=== PATIENT | male | born 1955 | race African-American/Black ===

== ENCOUNTER → 2017-02-27 | Outpatient (CLI) | payer MEDICARE ==
[2016-03-29 12:54] VITALS: BP 112/64
[~2017-02-27] MED LIST: ALLO300T PO; AMLO10TA2 PO; ATOR40TA59 PO; Aspirin PO; CLOP75TA27 PO; CRESTOR20 MG PO; DILT30TA PO; DOCU50CA9 PO; FURO20TA3 PO; INSU100V SQ; INSU100V8 SQ; LISI1TAB7 PO; LOSA100T6 PO; Lisinopril PO; Metoprolol Tartrate PO; OXYB5TAB33 PO; Oxycodone Hcl/Acetaminophen PO; SITA1TBM7 PO
--- NOTE | 2017-02-27 13:54 | CARD ---
APPROVED REPORT EXAM: Two-dimensional and M-mode echocardiogram with Doppler and color Doppler. Other Information Quality : Average Rhythm : NSR INDICATION Cardiomyopathy 2D DIMENSIONS RVDd3.2 (2.9-3.5cm)Left Atrium(2D)3.7 (1.6-4.0cm) IVSd1.4 (0.7-1.1cm)Aortic Root(2D)2.6 (2.0-3.7cm) LVDd4.4 (3.9-5.9cm)LVOT Diameter2.0 (1.8-2.4cm) PWd1.4 (0.7-1.1cm)LVDs2.8 (2.5-4.0cm) FS (%) 26.1 %SV59.1 ml LVEF(%)55.9 (>50%) Aortic Valve AoV Peak Tc.156.0cm/sAoV VTI29.0cm AO Peak GR.9.7mmHgLVOT Peak Tc.104.6cm/s LVOT VTI 20.81cmAO Mean GR.5mmHg ESTHER (VMAX)2.68zm8FHD (VTI)2.34cm2 AI P 1/2 Zecd929ut Mitral Valve MV E Beurgsdn19.6cm/sMV DECEL FLZG346nx MV A Tivkuxsz98.0cm/sMV E Mean Gr.2mmHg MV GZG10xvT/A Ratio1.1 MV A Bdfavmzs870wtKQW (PHT)3.16cm2 TDI E/Lateral E'11.2E/Medial E'11.4 Pulmonary Valve PV Peak Khljxkdg130.6cm/sPV Peak Grad.6mmHg RVOT VTI22.6cm Tricuspid Valve TR P. Diajnnkq258qn/sRAP MGYQWYQK9nkZq TR Peak Gr.04tdHkVYVB76kkWe LEFT VENTRICLE The left ventricle is normal size. There is borderline to mild concentric left ventricular hypertroph y. Left ventricle systolic function is normal. The Ejection Fraction is 50-55%. There is normal LV se gmental wall motion. Tissue Doppler imaging reveals mild left ventricular diastolic dysfunction. Carpenter smitral Doppler flow pattern is Grade I-abnormal relaxation pattern. There is no ventricular septal d efect visualized. RIGHT VENTRICLE The right ventricle is normal size. The right ventricular systolic function is normal. There is a pac emaker/ICD lead seen in the RV/RA. ATRIA The left atrium size is normal. The right atrium size is normal. The interatrial septum is intact wit h no evidence for an atrial septal defect or patent foramen ovale as noted on 2-D or Doppler imaging. AORTIC VALVE The aortic valve is normal in structure and function. The aortic valve is trileaflet. Doppler and Col or Flow revealed trace aortic regurgitation. There is no significant aortic valvular stenosis. MITRAL VALVE The mitral valve is normal in structure and function. There is no mitral valve stenosis. Doppler and Color Flow revealed trace mitral valve regurgitation. TRICUSPID VALVE The tricuspid valve is not well visualized. Doppler and Color Flow revealed mild tricuspid regurgitat ion. The PA pressure was estimated at 38 mmHg. There is no tricuspid valve stenosis. PULMONIC VALVE The pulmonic valve is not well visualized. Doppler and Color Flow revealed mild pulmonic valvular reg urgitation. There is no pulmonic valvular stenosis. GREAT VESSELS The aortic root is normal in size. Normal pulmonary venous flow (Doppler). The IVC is normal in size and collapses >50% with inspiration. PERICARDIAL EFFUSION There is no evidence of significant pericardial effusion. Critical Notification Critical Value: No <Conclusion> The left ventricle is normal size. Left ventricle systolic function is normal. The Ejection Fraction is 50-55%. There is borderline to mild concentric left ventricular hypertrophy. There is a pacemaker/ICD lead seen in the RV/RA. There is no significant aortic valvular stenosis. Doppler and Color Flow revealed trace aortic regurgitation. Doppler and Color Flow revealed trace mitral valve regurgitation. Doppler and Color Flow revealed mild tricuspid regurgitation. The PA pressure was estimated at 38 mmHg.
== END | disposition home or self-care (01) ==
LOC: ECHO 13:05
PROVIDERS: ATTEND Internal Medicine Cardiovascular Disease
DX: I08.3 Combined rheumatic disorders of mitral, aortic and tricuspid valves (principal)
CPT/HCPCS: 93306

== ENCOUNTER 2017-07-13 14:49 | Emergency (ER) | payer MEDICARE ==
[~2017-07-13] VITALS: Ht 172.7 cm; Wt 86.2 kg
[~2017-07-13 14:49] MED LIST changes: -CLOP75TA27 PO; +CLOP75TA57 PO
--- NOTE | 2017-07-13 15:05 | PHYS DOC ---
Past Medical History Past Medical History: Diabetes-Type I, High Cholesterol, Hypertension, Kidney Stone, Prostatitis Past Surgical History: TURP, Other Additional Past Surgical Histo: COLON CANCER Alcohol Use: Occasionally Drug Use: None Adult General Chief Complaint Chief Complaint: SHORTNESS OF BREATH [facility] HPI Patient is a 61 year old -Swazi Swazi male who presents with chart is breath with exertion. According patient he slept fine had no orthopnea and then this morning when he was walking from his car back to his house he felt short of breath. His past medical history of COPD but does not have any of his inhalers, hypertension, diabetes type 2, colon cancer status post resection , GERD, gout, osteoarthritis, congestive heart failure with an [employer] ICD implanted in January 2016. He states this does not feel like his congestive heart failure symptoms his he's had that in the past. He states he is compliant with all his medications not been out of it. He denies any chest pain. He states his monitor his been going off every night for the last week. Review of Systems Review of Systems Constitutional: Denies fever or chills [] Eyes: Denies change in visual acuity, redness, or eye pain [] HENT: Denies nasal congestion or sore throat [] Respiratory: Denies cough or positive for shortness of breath with exertion Cardiovascular: No additional information not addressed in HPI [] GI: Denies abdominal pain, nausea, vomiting, bloody stools or diarrhea [] : Denies dysuria or hematuria [] Musculoskeletal: Denies back pain or joint pain [] Integument: Denies rash or skin lesions [] Neurologic: Denies headache, focal weakness or sensory changes [] Endocrine: Denies polyuria or polydipsia [] Current Medications Current Medications Current Medications Medications (Trade) Dose Ordered Sig/Yefri Start Time Stop Time Status Last Admin Dose Admin Albuterol/ Ipratropium (Duoneb) 3 ml 1X ONCE 07/13/17 16:00 07/13/17 16:01 DC 07/13/17 16:41 3 ML Allergies Allergies Allergies Coded Allergies Type Severity Reaction Last Updated Verified No Known Drug Allergies 03/29/16 No Physical Exam Physical Exam Constitutional: Well developed, well nourished, no acute distress, non-toxic appearance. [] HENT: Normocephalic, atraumatic, bilateral external ears normal, oropharynx moist, no oral exudates, nose normal. [] Eyes: PERRLA, EOMI, conjunctiva normal, no discharge. [] Neck: Normal range of motion, no tenderness, supple, no stridor. [] Cardiovascular:Heart rate regular rhythm, no murmur [] Lungs & Thorax: Bilateral breath sounds clear to auscultation [] Abdomen: Bowel sounds normal, soft, no tenderness, no masses, no pulsatile masses. [] Skin: Warm, dry, no erythema, no rash. [] Back: No tenderness, no CVA tenderness. [] Extremities: No tenderness, no cyanosis, no clubbing, ROM intact, no edema. [] Neurologic: Alert and oriented X 3, normal motor function, normal sensory function, no focal deficits noted. [] Psychologic: Affect normal, judgement normal, mood normal. [] Current Patient Data Vital Signs Vital Signs Date Time Temp Pulse Resp B/P (MAP) Pulse Ox O2 Delivery O2 Flow Rate FiO2 07/13/17 16:41 97 Room Air 07/13/17 16:00 75 20 140/71 (94) 07/13/17 15:07 98.2 98.2 Lab Values Laboratory Tests Test 07/13/17 15:24 07/13/17 15:30 White Blood Count 9.9 x10^3/uL (4.0-11.0) Red Blood Count 4.30 x10^6/uL (4.30-5.70) Hemoglobin 13.0 g/dL (13.0-17.5) Hematocrit 38.9 % (39.0-53.0) L Mean Corpuscular Volume 91 fL (79-100) Mean Corpuscular Hemoglobin 30 pg (25-35) Mean Corpuscular Hemoglobin Concent 33 g/dL (31-37) Red Cell Distribution Width 15.8 % (11.5-14.5) H Platelet Count 355 x10^3/uL (140-400) Neutrophils (%) (Auto) 65 % (31-73) Lymphocytes (%) (Auto) 19 % (24-48) L Monocytes (%) (Auto) 12 % (0-9) H Eosinophils (%) (Auto) 3 % (0-3) Basophils (%) (Auto) 1 % (0-3) Neutrophils # (Auto) 6.4 x10^3uL (1.8-7.7) Lymphocytes # (Auto) 1.9 x10^3/uL (1.0-4.8) Monocytes # (Auto) 1.2 x10^3/uL (0.0-1.1) H Eosinophils # (Auto) 0.3 x10^3/uL (0.0-0.7) Basophils # (Auto) 0.1 x10^3/uL (0.0-0.2) Sodium Level 136 mmol/L (136-145) Potassium Level 5.1 mmol/L (3.5-5.1) Chloride Level 99 mmol/L (98-107) Carbon Dioxide Level 24 mmol/L (21-32) Anion Gap 13 (6-14) Blood Urea Nitrogen 34 mg/dL (8-26) H Creatinine 2.4 mg/dL (0.7-1.3) H Estimated GFR (Cockcroft-Gault) 33.6 Glucose Level 129 mg/dL (70-99) H Calcium Level 9.6 mg/dL (8.5-10.1) Magnesium Level 2.1 mg/dL (1.8-2.4) Total Bilirubin 0.2 mg/dL (0.2-1.0) Direct Bilirubin < 0.1 mg/dL (0.0-0.2) Aspartate Amino Transferase (AST) 22 U/L (15-37) Alanine Aminotransferase (ALT) 24 U/L (16-63) Alkaline Phosphatase 133 U/L (46-116) H Creatine Kinase 172 U/L (39-308) Creatine Kinase MB (Mass) 0.6 ng/mL (0.0-3.6) Creatine Kinase MB Relative Index 0.3 % (0-4) Troponin I Quantitative < 0.017 ng/mL (0.000-0.055) HM-Upw-B-Type Natriuretic Peptide 42 pg/mL (0-124) Total Protein 8.4 g/dL (6.4-8.2) H Albumin 4.1 g/dL (3.4-5.0) Urine Collection Type Unknown Urine Color Yellow Urine Clarity Clear Urine pH 6.5 Urine Specific [place] 1.010 Urine Protein Negative mg/dL (NEG-TRACE) Urine Glucose (UA) Negative mg/dL (NEG) Urine Ketones (Stick) Negative mg/dL (NEG) Urine Blood Negative (NEG) Urine Nitrite Negative (NEG) Urine Bilirubin Negative (NEG) Urine Urobilinogen Dipstick 0.2 mg/dL (0.2 mg/dL) Urine Leukocyte Esterase Negative (NEG) Urine RBC Occ /HPF (0-2) Urine WBC Occ /HPF (0-4) Urine Squamous Epithelial Cells Occ /LPF Urine Bacteria Few /HPF (0-FEW) Urine Opiates Screen Neg (NEG) Urine Methadone Screen Neg (NEG) Urine Barbiturates Neg (NEG) Urine Phencyclidine Screen Neg (NEG) Urine Amphetamine/Methamphetamine Neg (NEG) Urine Benzodiazepines Screen Neg (NEG) Urine Cocaine Screen Neg (NEG) Urine Cannabinoids Screen Neg (NEG) Urine Ethyl Alcohol Neg (NEG) Laboratory Tests 07/13/17 15:24 Laboratory Tests 07/13/17 15:24 EKG EKG EKG shows sinus rhythm [address] elevations or T-wave inversions, normal axis, QTC 434, as interpreted by me. Radiology/Procedures Radiology/Procedures One view chest x-ray does not show any focal consolidations,, ICD-9 in the left hemithorax, no bony abnormality's noted, as interpreted by me. Impressions: Dyspnea on exertion Course & Med Decision Making Course & Med Decision Making Pertinent Labs and Imaging studies reviewed. (See chart for details) Chin symptoms went away after he got a DuoNeb. Patient does not want to wait for a repeat troponin. And will sign against medical practice manager. I've written him a prescription for albuterol inhaler and sent it to his pharmacy. He is encouraged to return back to ER if he changes his mind or symptoms get worse or has other concerns. Dragon Disclaimer Dragon Disclaimer This electronic medical record was generated, in whole or in part, using a voice recognition dictation system. Departure Departure Impression: Primary Impression: Short of breath on exertion Disposition: AGAINST MEDICAL ADVICE Condition: STABLE Referrals: CLARICE CRISTINA MD (PCP) Patient Instructions: Shortness of Breath Additional Instructions: You were seen today for your shortness of breath and it got better after breathing treatment. You want to stay for further evaluation and your signing out AGAINST MEDICAL ADVICE. Your being a new prescription for albuterol that he can use as directed. Return back to ER if your get worse, you change your mind or the other concerns. Scripts Albuterol Sulfate (PROAIR HFA INHALER) 8.5 Gm Hfa.aer.ad 1-2 PUFF INH PRN Q6HRS Y for SHORTNESS OF BREATH, #1 INHALER 0 Refills Prov: YAMINI VEGAS MD 07/13/17 YAMINI VEGAS MD Jul 13, 2017 15:05
[2017-07-13 15:30] LABS: BASO # 0.1 x10^3/uL (0.0-0.2); BASO % 1 % (0-3); EOS % 3 % (0-3); HEMATOCRIT 38.9 % (39.0-53.0); LYMPH # 1.9 x10^3/uL (1.0-4.8); LYMPH % 19 % (24-48); MEAN CORPUSCULAR HEMOGLOBIN 30 pg (25-35); MEAN CORPUSCULAR HGB CONC 33 g/dL (31-37); MEAN CORPUSCULAR VOLUME 91 fL (79-100); MONO % 12 % (0-9); NEUT % 65 % (31-73); PLATELET COUNT 355 x10^3/uL (140-400); RED CELL DISTRIBUTION WIDTH 15.8 % (11.5-14.5); WHITE BLOOD COUNT 9.9 x10^3/uL (4.0-11.0)
[2017-07-13 15:37] LABS: BILIRUBIN,URINE NEGATIVE (NEG); GLUCOSE,URINE NEGATIVE (NEG); NITRITE,URINE NEGATIVE (NEG); PH,URINE 6.5; PROTEIN,URINE NEGATIVE (NEG-TRACE); UROBILINOGEN,URINE 0.2 mg/dL (0.2 mg/dL)
[2017-07-13 15:43] LABS: ANION GAP 13 (6-14); BLOOD UREA NITROGEN 34 mg/dL (8-26); CALCIUM 9.6 mg/dL (8.5-10.1); CARBON DIOXIDE 24 mmol/L (21-32); CHLORIDE 99 mmol/L (98-107); CREATININE 2.4 mg/dL (0.7-1.3); GFR 33.6; GLUCOSE 129 mg/dL (70-99); POTASSIUM 5.1 mmol/L (3.5-5.1); SODIUM 136 mmol/L (136-145)
[2017-07-13 15:44] LABS: BARBITURATES NEG (NEG); BENZODIAZEPINES NEG (NEG); CANNABINOIDS NEG (NEG); COCAINE NEG (NEG); METHADONE NEG (NEG); OPIATES NEG (NEG); PHENCYCLIDINE NEG (NEG)
[2017-07-13 15:46] LABS: BACTERIA,URINE FEW /HPF (0-FEW); RBC,URINE OCC /HPF (0-2); SQUAMOUS EPITHELIAL CELL,UR OCC /LPF; WBC,URINE OCC /HPF (0-4)
[2017-07-13 15:48] LABS: ALBUMIN 4.1 g/dL (3.4-5.0); ALK PHOS 133 U/L (46-116); ALT (SGPT) 24 U/L (16-63); AST (SGOT) 22 U/L (15-37); DIRECT BILIRUBIN < 0.1 mg/dL (0.0-0.2); MAGNESIUM 2.1 mg/dL (1.8-2.4); TOTAL BILIRUBIN 0.2 mg/dL (0.2-1.0); TOTAL PROTEIN 8.4 g/dL (6.4-8.2)
[2017-07-13 15:56] LABS: CKMB MASS 0.6 ng/mL (0.0-3.6)
[2017-07-13] MEDS ORDERED: IPRATRPIUM/ALBUTEROL 0.5/2.5MG 3 ML NEBU. NEB ONE (16:00)
[2017-07-13 18:00] VITALS: BP 140/80
[2017-07-13] MEDS ORDERED: PROAIR HFA8.5 GM INH (18:33)
--- NOTE | 2017-07-14 09:52 | RAD ---
Portable chest, 07/13/2017: History: Shortness of breath Comparison is made to a study from 01/18/2016. A left-sided transvenous pacemaker remains in place with 2 leads extending into the right heart. The heart size and pulmonary vascularity are normal. No pulmonary infiltrates are seen. There is no evidence of pleural fluid. IMPRESSION: No acute cardiopulmonary abnormality is detected.
--- NOTE | 2017-07-14 12:19 | EKG ---
[facility] [address] [place] [address] Test Date: 2017-07-13 Test Time: 15:07:31 Pat Name: CHRISTIAN JONES Department: Room: Gender: M Fine Arts Instructor: : 1955 Requested By: YAMINI VEGAS Order Number: [id number] Reading MD: Manuelito Fabian Measurements Intervals [place] Rate: 76 P: 30 SD: 148 QRS: 16 QRSD: 78 T: 66 QT: 382 QTc: 434 Interpretive Statements SINUS RHYTHM MILD NONSPECIFIC ST-T WAVE CHANGES. Electronically Signed On 08-01-2017 17:07:48 CDT by Manuelito Fabian
== END 2017-07-13 18:30 | disposition left against medical advice (07) ==
LOC: ER 14:49
DX: R06.02 Shortness of breath (principal); J44.9 Chronic obstructive pulmonary disease, unspecified; E11.9 Type 2 diabetes mellitus without complications; K21.9 Gastro-esophageal reflux disease without esophagitis; M19.90 Unspecified osteoarthritis, unspecified site; I50.9 Heart failure, unspecified; I11.0 Hypertensive heart disease with heart failure; M10.9 Gout, unspecified; E78.00 Pure hypercholesterolemia, unspecified; Z79.899 Other long term (current) drug therapy
CPT/HCPCS: 36415; 71010; 80048; 80076; 80307; 81001; 82553; 83735; 83880; 84484; 85025; 93005; 94250; 94640; 99285; J7620; G0479

== ENCOUNTER → 2018-01-29 | Outpatient (CLI) | payer MEDICARE ==
[2018-01-29] MEDS: REGADENOSON 0.4 MG/5 ML DISP.SYRIN. IV (11:09)
== END | disposition home or self-care (01) ==
LOC: NM 08:44
DX: R07.9 Chest pain, unspecified (principal); I10 Essential (primary) hypertension; E11.9 Type 2 diabetes mellitus without complications; I25.10 Atherosclerotic heart disease of native coronary artery without angina pectoris; J44.9 Chronic obstructive pulmonary disease, unspecified; E66.9 Obesity, unspecified; Z87.891 Personal history of nicotine dependence
CPT/HCPCS: 78452; 93017; 96374; 96375; 96376; A9500; J2785

== ENCOUNTER → 2018-09-11 | Outpatient (CLI) | payer MEDICARE ==
[~2018-09-11] MED LIST changes: -AMLO10TA2 PO; +AMLO10TA6 PO; +LOSA100T14 PO; -LOSA100T6 PO; +PROAIR HFA8.5 GM INH
--- NOTE | 2018-09-11 14:43 | CARD ---
MR#: [id number] Date of Study: 09/11/2018 Ordering Physician: ALMA DELIA ROCKWELL, Referring Physician: ALMA DELIA ROCKWELL, Tech: Hui Cainmary APPROVED REPORT EXAM: Two-dimensional and M-mode echocardiogram with Doppler and color Doppler. Other Information Quality : AverageHR: 73bpm INDICATION Systolic Congestive Heart Failure Surgery/Intervention ICD/Pacemaker: RISK FACTORS Hypertension Hyperlipidemia Diabetes 2D DIMENSIONS RVDd3.2 (2.9-3.5cm)Left Atrium(2D)3.8 (1.6-4.0cm) IVSd1.2 (0.7-1.1cm)Aortic Root(2D)3.1 (2.0-3.7cm) LVDd4.7 (3.9-5.9cm)LVOT Diameter2.1 (1.8-2.4cm) PWd1.4 (0.7-1.1cm)LVDs3.7 (2.5-4.0cm) FS (%) 20.8 %SV42.7 ml LVEF(%)42.4 (>50%) Aortic Valve AoV Peak Tc.141.4cm/sAoV VTI26.3cm AO Peak GR.8.0mmHgLVOT Peak Tc.93.1cm/s LVOT VTI 18.68cmAO Mean GR.4mmHg ESTHER (VMAX)1.27wx8FEH (VTI)2.50cm2 AI P 1/2 Zlyu374ub Mitral Valve MV E Vznulixd84.8cm/sMV DECEL LOTA952au MV A Gtuenhfb25.3cm/sMV UOY50zw E/A Ratio1.0MVA (PHT)3.87cm2 TDI E/Lateral E'10.1E/Medial E'11.5 Pulmonary Valve PV Peak Upveyzvr500.8cm/sPV Peak Grad.6mmHg Tricuspid Valve TR P. Lsiydngh800pl/sRAP ORCJYHLD4ymIc TR Peak Gr.17zvEeOVDJ53vzAa Pulmonary Vein S1 Hihfxwru96.3cm/sD2 Grehevjv36.1cm/s PVa bhppjezt764ktqz LEFT VENTRICLE The left ventricle is normal size. There is borderline to mild concentric left ventricular hypertroph y. The left ventricular systolic function is low normal. EF 50-55% There is normal LV segmental wall motion. Transmitral Doppler flow pattern is Grade II-pseudonormal filling dynamics. RIGHT VENTRICLE The right ventricle is normal size. There is normal right ventricular wall thickness. The right ventr icular systolic function is normal. There is a pacer/ICD lead in the RV/RA. ATRIA The left atrium size is normal. The right atrium size is normal. The interatrial septum is intact wit h no evidence for an atrial septal defect or patent foramen ovale as noted on 2-D or Doppler imaging. AORTIC VALVE The aortic valve is normal in structure and function. Doppler and Color Flow revealed trace aortic re gurgitation. There is no significant aortic valvular stenosis. MITRAL VALVE The mitral valve is normal in structure and function. There is no mitral valve stenosis. Doppler and Color-flow revealed trace mitral regurgitation. TRICUSPID VALVE The tricuspid valve is not well visualized. Doppler and Color Flow revealed trace tricuspid regurgita tion. There is no tricuspid valve stenosis. PULMONIC VALVE The pulmonic valve is not well visualized. Doppler and Color Flow revealed trace pulmonic valvular re gurgitation. GREAT VESSELS The aortic root is normal in size. Normal pulmonary venous flow (Doppler). The IVC is normal in size and collapses >50% with inspiration. PERICARDIAL EFFUSION There is no evidence of significant pericardial effusion. Critical Notification Critical Value: No <Conclusion> The left ventricular systolic function is low normal. EF 50-55% There is normal LV segmental wall motion. There is a pacer/ICD lead in the RV/RA. Signed by : Rickey Pantoja, Electronically Approved : 09/11/2018 14:42:23
== END | disposition home or self-care (01) ==
LOC: ECHO 12:46
PROVIDERS: ATTEND Internal Medicine Cardiovascular Disease
DX: I13.0 Hypertensive heart and chronic kidney disease with heart failure and stage 1 through stage 4 chronic kidney disease, or unspecified chronic kidney disease (principal); E11.22 Type 2 diabetes mellitus with diabetic chronic kidney disease; N18.3 Chronic kidney disease, stage 3 (moderate); I50.22 Chronic systolic (congestive) heart failure; E78.5 Hyperlipidemia, unspecified
CPT/HCPCS: 93306

== ENCOUNTER 2019-02-02 15:05 | Emergency (ER) | payer MEDICARE ==
[~2019-02-02] VITALS: Ht 172.7 cm; Wt 108.9 kg
[~2019-02-02 15:05] MED LIST changes: +ALBU2.5V8 INH; -AMLO10TA6 PO; +AMLO10TA8 PO; -PROAIR HFA8.5 GM INH
[2019-02-02] MEDS ORDERED: diphenhydrAMINE HCL 25 MG CAPSULE PO ONE (15:45)
[2019-02-02 16:01] VITALS: BP 166/87
[2019-02-02 16:14] LABS: CALCIUM 9.5 mg/dL (8.5-10.1); CREATININE 2.2 mg/dL (0.7-1.3); GFR 36.9; POTASSIUM 4.1 mmol/L (3.5-5.1)
[2019-02-02] MEDS ORDERED: PRED50TA PO (16:34)
--- NOTE | 2019-02-02 17:52 | PHYS DOC ---
Past Medical History Past Medical History: Cancer, Diabetes-Type I, High Cholesterol, Hypertension, Kidney Stone, [place], Prostatitis, Other Additional Past Medical Histor: COLON AND PROSTATE CA Past Surgical History: TURP, Other Additional Past Surgical Histo: COLON CANCER Alcohol Use: Occasionally Drug Use: None Adult General Chief Complaint Chief Complaint: FACE PROBLEM HPI HPI Patient is a 63 year old male who presents with facial swelling onset Saturday want to the eye doctor Sheila Almaraz referred to the ER for evaluation of kidneys. Patient has no shortness of breath no fever does not identify a specific allergen or trigger has been on losartan for a long time no shortness of breath. Symptoms are moderate has not tried anything for relief Review of Systems Review of Systems Constitutional: Denies fever or chills [] Eyes: Denies change in visual acuity, redness, or eye pain [] HENT: Denies nasal congestion or sore throat [] Respiratory: Denies cough or shortness of breath [] Neurologic: Denies headache, focal weakness or sensory changes [] Endocrine: Denies polyuria or polydipsia [] All other systems were reviewed and found to be within normal limits, except as documented in this note. Current Medications Current Medications Current Medications Medications (Trade) Dose Ordered Sig/Yefri Start Time Stop Time Status Last Admin Dose Admin Diphenhydramine HCl (Benadryl) 50 mg 1X ONCE 02/02/19 15:45 02/02/19 15:46 DC 02/02/19 15:56 50 MG Allergies Allergies Allergies Coded Allergies Type Severity Reaction Last Updated Verified No Known Drug Allergies 03/29/16 No Physical Exam Physical Exam Constitutional: Well developed, well nourished, no acute distress, non-toxic appearance. [] HENT: Normocephalic, atraumatic, bilateral external ears normal, oropharynx moist, no oral exudates, nose normal. []Mild krunal- orbital edema no tongue swelling no lip swelling uvula is normal Eyes: PERRLA, EOMI, conjunctiva normal, no discharge. [] Neck: Normal range of motion, no tenderness, supple, no stridor. [] Cardiovascular:Heart rate regular rhythm, no murmur [] Lungs & Thorax: Bilateral breath sounds clear to auscultation [] Abdomen: Bowel sounds normal, soft, no tenderness, no masses, no pulsatile masses. [] Skin: Warm, dry, no erythema, no rash. [] Back: No tenderness, no CVA tenderness. [] Extremities: No tenderness, no cyanosis, no clubbing, ROM intact, no edema. [] Neurologic: Alert and oriented X 3, normal motor function, normal sensory function, no focal deficits noted. [] Psychologic: Affect normal, judgement normal, mood normal. [] Current Patient Data Vital Signs Vital Signs Date Time Temp Pulse Resp B/P (MAP) Pulse Ox O2 Delivery O2 Flow Rate FiO2 02/02/19 16:01 74 16 166/87 (113) Room Air 98.0 02/02/19 15:27 97.9 99 97.9 Lab Values Laboratory Tests Test 02/02/19 16:01 Sodium Level 137 mmol/L (136-145) Potassium Level 4.1 mmol/L (3.5-5.1) Chloride Level 101 mmol/L (98-107) Carbon Dioxide Level 26 mmol/L (21-32) Anion Gap 10 (6-14) Blood Urea Nitrogen 19 mg/dL (8-26) Creatinine 2.2 mg/dL (0.7-1.3) H Estimated GFR (Cockcroft-Gault) 36.9 Glucose Level 146 mg/dL (70-99) H Calcium Level 9.5 mg/dL (8.5-10.1) Laboratory Tests 02/02/19 16:01 EKG EKG [] Radiology/Procedures Radiology/Procedures [] Course & Med Decision Making Course & Med Decision Making Pertinent Labs and Imaging studies reviewed. (See chart for details) []Creatinine is basically at stable level from usual. Patient has some evidence of periorbital edema is mild it is of unclear etiology losartan is definitely a possibility although ARBr less likely it's still possible last him to stop this medication I gave prednisone I advised him on importance of blood sugar monitoring I recommended he see his primary care doctor within 1 week to reevaluate his symptoms and decide if or when losartan could be reinitiated. Again I'm not certain of this as an etiology but there is no other definite source at this time Dragon Disclaimer Dragon Disclaimer This electronic medical record was generated, in whole or in part, using a voice recognition dictation system. Departure Departure Impression: Primary Impression: Angioedema Disposition: HOME, SELF-CARE Condition: STABLE Patient Instructions: Angioedema, Hkfm-rd-Umvo Scripts Prednisone (PREDNISONE) 50 Mg Tablet 1 TAB PO DAILY, #3 TAB Prov: MADDISON ADKINS MD 02/02/19 MADDISON ADKINS MD Feb 02, 2019 17:52
== END 2019-02-02 16:39 | disposition home or self-care (01) ==
LOC: ER 15:05
DX: T78.3XXA Angioneurotic edema, initial encounter (principal); E78.00 Pure hypercholesterolemia, unspecified; E10.9 Type 1 diabetes mellitus without complications; I10 Essential (primary) hypertension; I25.2 Old myocardial infarction
CPT/HCPCS: 36415; 80048; 99283; Q0163

== ENCOUNTER → 2019-03-27 | Outpatient (CLI) | payer MEDICARE ==
[~2019-03-27] MED LIST changes: +PRED50TA PO; +REGADENOSON 0.4 MG/5 ML DISP.SYRIN. IV ONE
--- NOTE | 2019-03-27 12:56 | RAD ---
MR#: [id number] Date of Study: 03/27/2019 Ordering Physician: ALMA DELIA ROCKWELL, Referring Physician: NATALI REESE Tech: ROMEO Meeks, ARRT (R) (N) APPROVED REPORT Test Type: Pharmacological Stress Nurse/Tech: Esha Perera R.N. Test Indications: SOB Cardiac History: Family history, Hypertension, Diabetes, [place], Stents, has defibrillator implant Medications: See Electronic Medical Record Medical History: See Electronic Medical Record Resting ECG: NSR Resting Heart Rate: 70 bpm Resting Blood Pressure: 170/70mmHg Pretest Chest Pain: No chest pain Nurse/Tech Notes S1S2, lungs sound clear Consent: The procedure was explained to the patient in lay terms. Informed consent was witnessed. Rakesh eout was entered into [employer]. History and Stress Test performed by Esha Perera RPatriciaN. Pharm. Details Pharmacologic stress testing was performed using 0.4mg per 5ml of regadenoson given intravenously ove r 7-10 seconds. Stress Symptoms Dyspnea POST EXERCISE Reason for Termination: Infusion complete Target HR: 134 Max HR: 92 bpm Max Blood Pressure: 169/70mmHg Blood Pressure response to exercise: Normal blood pressure response during stress. Chest Pain: No. Arrhythmia: No. ST Change: No. INTERPRETATION Stress EKG Conclusion: Baseline EKG showed sinus rhythm. No ischemic changes at peak stress. No arr hythmias. Imaging Protocol IMAGE PROTOCOL: Rest Tc-99m/stress Tc-99m 1 day Rest: Stress: Viability: Radiopharm.Tc99m JnsiuqlnmJk86f Sestamibi Dose10.8mCi 33mCi Img Date 03/27/2019 03/27/2019 Inj-Img Fzmh63nrx. 45min. Rest Admin Site:IV - Right ForearmAdministrator:RT Matt (R)(N) Stress Admin Site: IV - Right ForearmAdministrator: RT Matt (R)(N) STRESS DATA End Diast. Vol.79.0mlAv. Heart Rate76.0bpm End Syst. Vol.31.0mlCO Index BSA3.6L/min Myocardial Iyuq007.0gEject. Fcmmtjgq11.0% Stress Rates Pk. Fill Rate2.97EDV/secLVtime Pk. Fill 125.57msec Pk. Empty Rate4.21ESV/secLVtime Pk. Styzu574.88msec 1/3 Pk. Fill1.89EDV/sec Stress Scores Regional WT0.00Summed WT4.00 Regional WM3.00Summed WM8.00 Study quality was good. Left Ventricular size was Normal at Rest and Stress. Lung uptake was . Left Ventricular ejection fraction is 61%. The rest and stress images show normal perfusion, normal contraction and thickening. LV Perf. Quant 17 Seg. SSS0.00 17 Seg. SRS2.00 17 Seg. SDS0.00 Stress Defect Extent (% LAD)0.00Rest Defect Extent (% LAD)5.00Rev. Defect Extent (% LAD)0.00 Stress Defect Extent (% LCX) 0.00Rest Defect Extent (% LCX)0.00Rev. Defect Extent (% LCX)0.00 Stress Defect Extent (% RCA)0.00Rest Defect Extent (% RCA)0.00Rev. Defect Extent (% RCA)0.00 Stress Defect Extent (% PRAVIN)0.00Rest Defect Extent (% PRAVIN)1.70Rev. Defect Extent (% PRAVIN)0.00 Conclusion 1. Regadenoson cardioisotope stress test did not show any evidence of ischemia or infarct. 2. Normal left ventricular systolic function with ejection fraction calculated at 61%. 3. Low risk for cardiac events. Signed by : Alma Delia Rockwell, Electronically Approved : 03/27/2019 12:55:47
== END | disposition home or self-care (01) ==
LOC: NM 08:26
PROVIDERS: ATTEND Internal Medicine Cardiovascular Disease
DX: I25.10 Atherosclerotic heart disease of native coronary artery without angina pectoris (principal); I10 Essential (primary) hypertension; E11.9 Type 2 diabetes mellitus without complications; I25.2 Old myocardial infarction; Z95.0 Presence of cardiac pacemaker; Z87.891 Personal history of nicotine dependence; Z95.818 Presence of other cardiac implants and grafts
CPT/HCPCS: 78452; 93017; A9500; J2785

== ENCOUNTER 2019-06-06 03:39 | Emergency (ER) | payer MEDICARE ==
[~2019-06-06] VITALS: Ht 172.7 cm; Wt 99.3 kg
[~2019-06-06 03:39] MED LIST changes: +LISI1TAB20 PO; -LISI1TAB7 PO; -REGADENOSON 0.4 MG/5 ML DISP.SYRIN. IV ONE
[2019-06-06 03:45] VITALS: BP 170/91
--- NOTE | 2019-06-06 04:03 | PHYS DOC ---
Past Medical History Past Medical History: Cancer, Diabetes-Type I, High Cholesterol, Hypertension, Kidney Stone, [place], Prostatitis, Other Additional Past Medical Histor: COLON AND PROSTATE CA Past Surgical History: TURP, Other Additional Past Surgical Histo: COLON CANCER Alcohol Use: Occasionally Drug Use: None Adult General Chief Complaint Chief Complaint: ANKLE PROBLEM HPI HPI Patient is a 63-year-old male who presents with complaint of left ankle pain and injury after tripping and twisting his ankle while going down stairs with trash. Patient rates his pain at a 9 out of 10 and states the pain is primarily in the lateral aspect of the ankle. Patient states that he has been hobbling around ever since stating that bearing weight on the ankle worsens the pain. He denies any other injuries. Injury occurred about 2 hours ago.[] Review of Systems Review of Systems Constitutional: Denies fever or chills [] Respiratory: Denies cough or shortness of breath [] Cardiovascular: No additional information not addressed in HPI [] Musculoskeletal: Complains of left ankle pain [] Integument: Denies rash or skin lesions [] All other systems were reviewed and found to be within normal limits, except as documented in this note. Current Medications Current Medications Current Medications Medications (Trade) Dose Ordered Sig/Yefri Start Time Stop Time Status Last Admin Dose Admin Oxycodone/ Acetaminophen (Percocet 10/325) 1 tab 1X ONCE 06/06/19 04:30 06/06/19 04:31 DC 06/06/19 04:20 1 TAB Allergies Allergies Allergies Coded Allergies Type Severity Reaction Last Updated Verified No Known Drug Allergies 03/29/16 No Physical Exam Physical Exam Constitutional: Well developed, well nourished, in mild distress due to pain. [] Cardiovascular:Heart rate regular rhythm, no murmur [] Lungs & Thorax: Bilateral breath sounds clear to auscultation [] Skin: Warm, dry, no erythema, no rash. [] Extremities: Left ankle demonstrates moderate soft tissue swelling around the distal third of the fibula with marked tenderness to palpation in this region. [] Neurologic: Alert and oriented X 3, no focal deficits noted. [] Current Patient Data Vital Signs Vital Signs Date Time Temp Pulse Resp B/P (MAP) Pulse Ox O2 Delivery O2 Flow Rate FiO2 06/06/19 03:45 98.4 95 18 170/91 (117) 96 Room Air 98.4 EKG EKG [] Radiology/Procedures Radiology/Procedures [] Impressions: PROCEDURE: ANKLE LEFT 3V Left ankle 3 views: Reason for examination: Fell. There is an oblique fracture of the distal fibula which extends down to the level of the ankle mortise. This shows mild displacement without significant angulation. There is also a bone fragment at the distal tip of the medial malleolus. This however appears corticated and may be chronic. There is however a posterior malleolar fracture with some minimal displacement. No abnormality seen at the talus or calcaneus or visualized portions of the foot. There appears be mild widening of the talofibular joint space. IMPRESSION: Oblique fracture of the distal fibula extending down to the level of the ankle mortise. Ossific density with corticated margins at the tip of the medial malleolus which may represent a chronic avulsion fracture. Electronically signed by: Kasey Arcos MD (06/06/2019 4:51 AM) [facility] Course & Med Decision Making Course & Med Decision Making Pertinent Labs and Imaging studies reviewed. (See chart for details) Findings of the x-ray reviewed with patient and patient placed in posterior splint with side stirrup by ER nurse. Patient reevaluated post splint placement and splint demonstrates good fit and alignment with excellent capillary refill. An attempt was made at crutch training; however, patient is unable to coordinate use of crutches without bearing weight on his left ankle. At this point, a prescription for a 4 wheeled knee walker has been written. Patient has been instructed to schedule follow-up appointment with Dr. Guerrero first thing Saturday. Dragon Disclaimer Dragon Disclaimer This electronic medical record was generated, in whole or in part, using a voice recognition dictation system. Departure Departure Impression: Primary Impression: Closed left ankle fracture Disposition: 01 HOME, SELF-CARE Condition: STABLE Referrals: DAMARI RUSSELL (PCP) ERICH GUERRERO MD Call to schedule appointment first thing Saturday. Patient Instructions: Ankle Fracture Additional Instructions: Follow-up with orthopedist early next week. Scripts Naproxen (NAPROSYN) 500 Mg Tablet 1 TAB PO BID PRN for PAIN, #30 TAB Prov: ANTONY DOS SANTOS Jr. DO 06/06/19 Oxycodone Hcl/Acetaminophen (OXYCODON-ACETAMINOPHEN 7.5-325) 1 Each Tablet 1 EACH PO PRN Q6HRS PRN for PAIN, #20 TAB 0 Refills Prov: ANTONY DOS SANTOS Jr. DO 06/06/19 Problem Qualifiers Primary Impression: Closed left ankle fracture Encounter type: initial encounter Qualified Codes: S82.892A - Other fracture of left lower leg, initial encounter for closed fracture ANTONY DOS SANTOS Jr., DO Jun 06, 2019 04:03
[2019-06-06] MEDS ORDERED: oxyCODONE/APAP 10/325 1 TAB TABLET PO ONE (04:30)
--- NOTE | 2019-06-06 04:54 | RAD ---
Left ankle 3 views: Reason for examination: Fell. There is an oblique fracture of the distal fibula which extends down to the level of the ankle mortise. This shows mild displacement without significant angulation. There is also a bone fragment at the distal tip of the medial malleolus. This however appears corticated and may be chronic. There is however a posterior malleolar fracture with some minimal displacement. No abnormality seen at the talus or calcaneus or visualized portions of the foot. There appears be mild widening of the talofibular joint space. IMPRESSION: Oblique fracture of the distal fibula extending down to the level of the ankle mortise. Ossific density with corticated margins at the tip of the medial malleolus which may represent a chronic avulsion fracture. Electronically signed by: Kasey Arcos MD (06/06/2019 4:51 AM) [facility]
[2019-06-06] MEDS ORDERED: NAPR-683 PO (05:06)
[2019-06-06] MEDS ORDERED: OXYC1TAB8 PO (05:06)
== END 2019-06-06 06:05 | disposition home or self-care (01) ==
LOC: ER 03:39
DX: S82.892A Other fracture of left lower leg, initial encounter for closed fracture (principal); E78.00 Pure hypercholesterolemia, unspecified; E10.9 Type 1 diabetes mellitus without complications; I10 Essential (primary) hypertension; I25.2 Old myocardial infarction; W10.8XXA Fall (on) (from) other stairs and steps, initial encounter; Z87.442 Personal history of urinary calculi; Y93.89 Activity, other specified; Y92.89 Other specified places as the place of occurrence of the external cause; Y99.8 Other external cause status
CPT/HCPCS: 29515; 73610; 99284-25

== ENCOUNTER → 2019-11-04 | Outpatient (CLI) | payer MEDICARE ==
[~2019-11-04] MED LIST changes: -INSU100V SQ; +INSU100V6 SQ; +NAPR-683 PO; +OXYC1TAB8 PO
--- NOTE | 2019-11-04 14:32 | RAD ---
EXAM: RENAL/RETROPERITONAL ULTRASOUND. HISTORY: Chronic renal disease. COMPARISON: 07/26/2015, 07/08/2013. FINDINGS: Ultrasound of the kidneys, bladder and retroperitoneum was performed. The right kidney is positioned in the right hemipelvis. It is somewhat dysmorphic. It is measured at 7.8 cm, but this is an underestimate. Cortical thickness and echogenicity are preserved. There is an extrarenal pelvis which is dilated chronically. There is no pelviectasis. The left kidney measures 11.3 cm. Cortical thickness and echogenicity are preserved. There is no hydronephrosis. The bladder is decompressed. A component of diffuse wall thickening may reflect luminal decompression. The abdominal aorta and inferior vena cava are grossly patent and normal in caliber. IMPRESSION: 1. 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 No right hydronephrosis. 2. Bladder wall thickening may reflect luminal decompression. Correlate for chronic outlet obstruction or inflammation. Electronically signed by: Willie Luu MD (11/04/2019 2:29 PM) [facility]
== END | disposition home or self-care (01) ==
LOC: US 12:28
PROVIDERS: ATTEND Nurse Practitioner Adult Health
DX: N18.3 Chronic kidney disease, stage 3 (moderate) (principal)
CPT/HCPCS: 76770

== ENCOUNTER → 2020-03-10 | Outpatient (CLI) | payer MEDICARE ==
--- NOTE | 2020-03-10 15:06 | CARD ---
MR#: [id number] Date of Study: 03/10/2020 Ordering Physician: ALMA DELIA ROCKWELL, Referring Physician: ALMA DELIA ROCKWELL Tech: Manjula Quinones RDCS APPROVED REPORT EXAM: Two-dimensional and M-mode echocardiogram with Doppler and color Doppler. Other Information Quality : Good INDICATION Congestive Heart Failure Surgery/Intervention ICD/Pacemaker: Date: 01/17/2016 2D DIMENSIONS RVDd3.4 (2.9-3.5cm)Left Atrium(2D)3.0 (1.6-4.0cm) IVSd1.5 (0.7-1.1cm)Aortic Root(2D)3.0 (2.0-3.7cm) LVDd4.2 (3.9-5.9cm)LVOT Diameter2.1 (1.8-2.4cm) PWd1.3 (0.7-1.1cm)LVDs2.2 (2.5-4.0cm) FS (%) 30.0 %SV63.3 ml LVEF(%)60.0 (>50%) Aortic Valve AoV Peak Tc.151.0cm/sAoV VTI28.7cm AO Peak GR.9.1mmHgLVOT Peak Tc.108.0cm/s AO Mean GR.5mmHgAVA (VMAX)2.46cm2 ESTHER (VTI)2.70cm2 Mitral Valve MV E Cdgqdzrj29.9cm/sMV DECEL [id number] MV A Pumwgbml30.5cm/sE/A Ratio0.9 Tricuspid Valve TR P. Jgzocdaq745vm/sRAP HBODTQKT7aqZp TR Peak Gr.05hdTwHLHY58stXd Pulmonary Vein S1 Qdwasova14.8cm/sD2 Tkiejopc94.7cm/s LEFT VENTRICLE The left ventricle is normal size. There is mild concentric left ventricular hypertrophy. The left ve ntricular systolic function is normal. The Ejection Fraction is 55-60%. There is normal LV segmental wall motion. Transmitral Doppler flow pattern is Grade I-abnormal relaxation pattern. RIGHT VENTRICLE The right ventricle is normal size. The right ventricular systolic function is normal. There is a pac emaker lead in the right ventricle. ATRIA The left atrium size is normal. The right atrium size is normal. A pacemaker is seen in the right atr ium consistent with history. The interatrial septum is intact with no evidence for an atrial septal d efect or patent foramen ovale as noted on 2-D or Doppler imaging. AORTIC VALVE The aortic valve is calcified but opens well. Doppler and Color Flow revealed no significant aortic r egurgitation. There is no significant aortic valvular stenosis. MITRAL VALVE The mitral valve is calcified but opens well. Mitral annular calcification is mild. There is no evide nce of mitral valve prolapse. There is no mitral valve stenosis. Doppler and Color-flow revealed mild mitral regurgitation. TRICUSPID VALVE The tricuspid valve is normal in structure and function. Doppler and Color Flow revealed trace to mil d tricuspid regurgitation. There is mild to moderate pulmonary hypertension. The PA pressure was alysa mated at 41 mmHg. There is no tricuspid valve stenosis. PULMONIC VALVE The pulmonic valve is not well visualized. Doppler and Color Flow revealed no pulmonic valvular regur gitation. There is no pulmonic valvular stenosis. GREAT VESSELS The aortic root is normal in size. The ascending aorta is normal in size. The IVC is normal in size a nd collapses >50% with inspiration. PERICARDIAL EFFUSION There is no evidence of significant pericardial effusion. Critical Notification Critical Value: No <Conclusion> The left ventricular systolic function is normal. The Ejection Fraction is 55-60%. There is normal LV segmental wall motion. Transmitral Doppler flow pattern is Grade I-abnormal relaxation pattern. There is a pacemaker lead in the right and right ventricle. Mild mitral regurgitation. Trace to mild tricuspid regurgitation. The PA pressure was estimated at 41 mmHg. There is no evidence of significant pericardial effusion. Signed by : Alma Delia Rockwell, Electronically Approved : 03/10/2020 15:05:47
== END ==
LOC: ECHO 13:59
PROVIDERS: ATTEND Internal Medicine Cardiovascular Disease
DX: I08.3 Combined rheumatic disorders of mitral, aortic and tricuspid valves (principal); I27.20 Pulmonary hypertension, unspecified
CPT/HCPCS: 93306

== ENCOUNTER 2020-12-06 02:39 | Emergency (ER) | payer MEDICARE ==
[~2020-12-06] VITALS: Ht 175.3 cm; Wt 109.0 kg
[~2020-12-06 02:39] MED LIST changes: +AMLO-187 PO; -AMLO10TA8 PO; +CARV6.2511 PO; +FURO-68 PO; +HYDR-2869 PO; +HYDR12.575 PO; +ISOS30TA68 PO
[2020-12-06] MEDS ORDERED: FAMOTIDINE 20 MG/2 ML VIAL ONE (02:49)
[2020-12-06] MEDS ORDERED: diphenhydrAMINE 50 MG/ML VIAL ONE (02:49)
[2020-12-06] MEDS ORDERED: methylPREDNISolone SOD SUCC PF 125 MG/2 ML VIAL. ONE (02:49)
--- NOTE | 2020-12-06 03:04 | PHYS DOC ---
Past Medical History Past Medical History: Cancer, Diabetes-Type I, High Cholesterol, Hypertension, Kidney Stone, [place], Prostatitis, Other Additional Past Medical Histor: COLON AND PROSTATE CA Past Surgical History: TURP, Other Additional Past Surgical Histo: COLON CANCER Smoking Status: Former Smoker Alcohol Use: Occasionally Drug Use: None General Adult EDM: Chief Complaint: OTHER COMPLAINTS HPI: HPI: Patient is a 65 year old male with past medical history of diabetes and hypertension presents for angioedema. He states that around 2 PM yesterday afternoon he started to notice some swelling of his upper lip. The swelling progressively got worse throughout the day. He did not take anything to help with the swelling. He states he did not take any new medications yesterday, did not ingest any new foods or drinks, and has had no new detergents, lotions, facial washes in the home. He states he has had a reaction like this in the past once before about 20 years ago when he was put on an EVAN inhibitor and he was switched from an EVAN inhibitor to losartan, which he still takes to this day. He denies any shortness of breath, difficulty breathing, dizziness, GI upset, or itchy rash anywhere. He states only his upper lip is swollen currently, his tongue feels normal size. Review of Systems: Review of Systems: Constitutional: Denies fever or chills. [] Eyes: Denies change in visual acuity. [] HENT: Denies nasal congestion or sore throat. [] Respiratory: Denies cough or shortness of breath. [] Cardiovascular: Denies chest pain or edema. [] GI: Denies abdominal pain, nausea, vomiting, bloody stools or diarrhea. [] : Denies dysuria. [] Musculoskeletal: Denies back pain or joint pain. [] Integument: Denies rash. [positive lip swelling] Neurologic: Denies headache, focal weakness or sensory changes. [] Endocrine: Denies polyuria or polydipsia. [] Lymphatic: Denies swollen glands. [] Psychiatric: Denies depression or anxiety. [] Heart Score: Risk Factors: Risk Factors: DM, Current or recent (<one month) smoker, HTN, HLP, family history of CAD, obesity. Risk Scores: Score 0 - 3: 2.5% MACE over next 6 weeks - Discharge Home Score 4 - 6: 20.3% MACE over next 6 weeks - Admit for Clinical Observation Score 7 - 10: 72.7% MACE over next 6 weeks - Early Invasive Strategies Current Medications: Current Medications Medications (Trade) Dose Ordered Sig/Yefri Start Time Stop Time Status Last Admin Dose Admin Diphenhydramine HCl (Benadryl) 50 mg STK-MED ONCE 12/06/20 02:49 12/06/20 02:50 DC Famotidine (Pepcid Vial) 20 mg STK-MED ONCE 12/06/20 02:49 12/06/20 02:50 DC Methylprednisolone Sodium Succinate (SOLU-Medrol 125MG VIAL) 125 mg STK-MED ONCE 12/06/20 02:49 12/06/20 02:50 DC Allergies: Allergies: Allergies Coded Allergies Type Severity Reaction Last Updated Verified No Known Drug Allergies 03/29/16 No Physical Exam: PE: Constitutional: Well developed, well nourished, no acute distress, non-toxic appearance. [] HENT: Normocephalic, atraumatic, upper lip swollen, tongue normal in size and appearance, lower lip normal in size and appearance [] Eyes: PERRLA, EOMI, conjunctiva normal, no discharge. [] Neck: Normal range of motion, no tenderness, supple, no stridor. [] Cardiovascular:Heart rate regular rhythm, no murmur [] Lungs & Thorax: Bilateral breath sounds clear to auscultation [] Abdomen: Bowel sounds normal, soft, no tenderness, no masses, no pulsatile masses. [] Skin: Warm, dry, no erythema, no rash. [] Back: No tenderness, no CVA tenderness. [] Extremities: No tenderness, no cyanosis, no clubbing, ROM intact, no edema. [] Neurologic: Alert and oriented X 3, normal motor function, normal sensory function, no focal deficits noted. [] Psychologic: Affect normal, judgement normal, mood normal. [] EKG: EKG: [] Radiology/Procedures: Radiology/Procedures: [] Course & Med Decision Making: Course & Med Decision Making Pertinent Labs and Imaging studies reviewed. (See chart for details) []Treatment included IV fluids solumedrol benadryl and pepcid. Patient was observed for over 1 hour. Patient denied any worsening of symptoms. Patient without tongue or throat swelling. Patient was adivised to stop losartan. Rx prednisione. Advised to take OTC benadryl and pepcid. Follow up with PCP in 2-3 days. Return to ER immediately for increased swelling or difficulty breathing. Patient requesting lab draw. Creatine eleveate at 2.6 Patient has known history of elevated creatine. Review of previous labs up to 3.0. K+ within normal limits Patient urinated without issues. Discharged home-- advised to discuss Cr with PCP. Donna Disclaimer: Donna Disclaimer: This electronic medical record was generated, in whole or in part, using a voice recognition dictation system. Departure Departure Impression: Primary Impression: Angioedema Disposition: DC HOME SELF CARE/HOMELESS Condition: STABLE Referrals: CLARICE CRISTINA MD (PCP) Patient Instructions: Angioedema Scripts Famotidine (PEPCID) 40 Mg Tablet 40 MG PO DAILY for 10 Days, #10 TAB Prov: CHASIDY MILLER I DO 12/06/20 Diphenhydramine Hcl (BENADRYL ALLERGY) 25 Mg Tablet 1 TAB PO Q4-6HRS for 30 Days, TAB 0 Refills Prov: CHASIDY MILLER DO 12/06/20 Prednisone (PREDNISONE) 50 Mg Tablet 1 TAB PO DAILY, #5 TAB Prov: CHASIDY MILLER I DO 12/06/20 CHASIDY MILLER DO Dec 06, 2020 03:04
[2020-12-06] MEDS ORDERED: methylPREDNISolone SOD SUCC PF 125 MG/2 ML VIAL. IV ONE (03:30)
[2020-12-06] MEDS ORDERED: FAMOTIDINE 20 MG/2 ML VIAL IVP ONE (03:30)
[2020-12-06] MEDS ORDERED: diphenhydrAMINE 50 MG/ML VIAL IVP ONE (03:30)
[2020-12-06] MEDS ORDERED: IV NORMAL SALINE 1000ML BAG 1,000 ML IV ONE (03:30)
[2020-12-06] MEDS ORDERED: PRED50TA PO (04:16)
[2020-12-06] MEDS ORDERED: DIPH25TA64 PO (04:16)
[2020-12-06] MEDS ORDERED: FAMO40TA57 PO (04:16)
[2020-12-06 04:25] LABS: BASO # 0.1 x10^3/uL (0.0-0.2); BASO % 1 % (0-3); EOS # 0.4 x10^3/uL (0.0-0.7); EOS % 4 % (0-3); HEMATOCRIT 39.2 % (39.0-53.0); HEMOGLOBIN 13.2 g/dL (13.0-17.5); LYMPH # 1.6 x10^3/uL (1.0-4.8); LYMPH % 18 % (24-48); MEAN CORPUSCULAR HEMOGLOBIN 29 pg (25-35); MEAN CORPUSCULAR HGB CONC 34 g/dL (31-37); MEAN CORPUSCULAR VOLUME 86 fL (79-100); MONO # 1.1 x10^3/uL (0.0-1.1); MONO % 13 % (0-9); NEUT # 5.7 x10^3/uL (1.8-7.7); NEUT % 64 % (31-73); PLATELET COUNT 329 x10^3/uL (140-400); RED BLOOD COUNT 4.57 x10^6/uL (4.30-5.70); WHITE BLOOD COUNT 8.8 x10^3/uL (4.0-11.0)
[2020-12-06 04:43] LABS: CREATININE 2.6 mg/dL (0.7-1.3); GFR 30.2; POTASSIUM 4.3 mmol/L (3.5-5.1)
[2020-12-06 04:48] LABS: ALBUMIN 3.9 g/dL (3.4-5.0); TOTAL BILIRUBIN 0.2 mg/dL (0.2-1.0); TOTAL PROTEIN 7.9 g/dL (6.4-8.2)
[2020-12-06 04:52] VITALS: BP 161/85
== END 2020-12-06 05:00 | disposition home or self-care (01) ==
LOC: ER 02:39
DX: T78.3XXA Angioneurotic edema, initial encounter (principal); E10.9 Type 1 diabetes mellitus without complications; E78.00 Pure hypercholesterolemia, unspecified; I10 Essential (primary) hypertension; I25.2 Old myocardial infarction; F17.200 Nicotine dependence, unspecified, uncomplicated; Z85.9 Personal history of malignant neoplasm, unspecified; Z87.442 Personal history of urinary calculi; Z98.890 Other specified postprocedural states
CPT/HCPCS: 36415; 80053; 85025; 96361; 96374; 96375; 99285; J1200; J2930; J3490; J7030

== ENCOUNTER 2021-10-02 03:30 | Emergency (ER) | payer MEDICARE ==
[~2021-10-02] VITALS: Ht 172.7 cm; Wt 110.0 kg
[~2021-10-02 03:30] MED LIST changes: +DIPH25TA64 PO; +FAMO40TA57 PO; -LISI1TAB20 PO; +LISI1TAB39 PO
--- NOTE | 2021-10-02 04:57 | PHYS DOC ---
Past Medical History Past Medical History: Cancer, Diabetes-Type I, High Cholesterol, Hypertension, Kidney Stone, [place], Prostatitis, Other Additional Past Medical Histor: COLON AND PROSTATE CA Past Surgical History: TURP, Other Additional Past Surgical Histo: COLON CANCER Smoking Status: Former Smoker Alcohol Use: Occasionally Drug Use: None General Adult HPI: HPI: Patient is a 66 year old male presents here with report of swelling in his genitals. He reports that he did not have any pain or really been noticed until he looked down at his genitals to urinate this morning. He reports that he could not tell if his penis or his scrotum was swollen. He denies any pain at all. He is able to urinate without difficulty. He denies abdominal pain. He denies chest pain, dyspnea, weakness, cough, fevers or chills. In addition, several weeks ago he noticed some left posterior elbow swelling, he was seen by his primary care physician was placed on a steroid taper. He wondered if the 2 entities were possibly related. The patient has known chronic kidney disease, stage III, as well as congestive heart failure. He has a history of chronically poorly controlled hypertension, but he reports that his blood pressure has been much better recently. He reports compliance with low-sodium diet, but then admits that he is not sure if he really has been. The left elbow swelling, which appears to be consistent with olecranon bursitis, is not painful there is no redness, no limited range of motion. He reports eating and drinking well. He denies any bowel habit changes. Again, he is able to pass urine without any difficulty. He denies any genital or penile pain, redness, wounds. No weeping or drainage. He repeatedly insist that I give him something to "drain" the swelling. Review of Systems: Review of Systems: Constitutional: Denies fever or chills. [] HENT: Denies nasal congestion or sore throat. [] Respiratory: Denies cough or shortness of breath. [] Cardiovascular: He denies chest pain. He has chronic peripheral edema, which his corroborates presence of, for quite some time, and is unchanged today. GI: Denies abdominal pain, nausea, vomiting, bloody stools or diarrhea. [] : Denies urinary symptoms. No scrotal or penile pain. He does have foreskin swelling. The foreskin is retractable. Musculoskeletal: Denies back pain or joint pain. [] Integument: Denies rash. [] Neurologic: Denies headache, focal weakness or sensory changes. [] Psychiatric: Anxiety as it pertains to his current clinical condition. [] Heart Score: C/O Chest Pain: No Risk Factors: Risk Factors: DM, Current or recent (<one month) smoker, HTN, HLP, family history of CAD, obesity. Risk Scores: Score 0 - 3: 2.5% MACE over next 6 weeks - Discharge Home Score 4 - 6: 20.3% MACE over next 6 weeks - Admit for Clinical Observation Score 7 - 10: 72.7% MACE over next 6 weeks - Early Invasive Strategies Allergies: Allergies: Allergies Coded Allergies Type Severity Reaction Last Updated Verified lisinopril Allergy Severe angioedema 12/06/20 Yes losartan Allergy Severe angioedema 12/06/20 Yes Physical Exam: PE: Constitutional: Well developed, well nourished, no acute distress, non-toxic appearance. He is in no distress. He is chronically ill-appearing however. HENT: Normocephalic, atraumatic Eyes: No scleral icterus Neck: Normal range of motion, no tenderness, supple, no stridor. No JVD, trachea midline Cardiovascular:Heart rate regular rhythm, +2 radial and +2 dorsalis pedis pulses bilaterally. There is no periorbital or facial edema. There is bilateral, symmetric lower extremity edema. There is mild foreskin edema, no evidence of anasarca. Lungs & Thorax: Bilateral breath sounds clear to auscultation, no rales, rhonchi or wheezes. Abdomen: Abdomen is obese, soft, nondistended, nontender to palpation. No fluid wave or obvious ascites noted. Midline incision from previous surgery is clean, dry, intact. : There is mild foreskin edema, which is circumferential, the foreskin is very easily retracted. The penis is clean, dry, intact, urethral meatus is patent, no drainage, no bleeding. There is no tenderness to palpation. There is no s crotal or perineal edema. Skin: Warm, dry, no erythema, no rash. No redness, no wounds, no weeping, no jaundice. Skin is overall relatively dry, especially on his feet. No crusting. Back: No tenderness, no CVA tenderness. [] Extremities: No tenderness, no cyanosis, no clubbing, ROM intact, bilateral, symmetric 1+ lower extremity edema. No calf tenderness. No deformity is noted. Full painless range of motion of bilateral upper and lower extremities. He has a moderate left olecranon bursitis, which is nonpainful, no warmth or erythema, the area is round and rubbery, as would be consistent with a bursitis. Full painless range of motion of his left elbow. No bony tenderness. No evidence of infection. Neurologic: He is awake, alert, ambulatory with a brisk and steady gait, normal motor strength, sensation is grossly intact, speech is clear and fluent. Psychologic: Anxious [] EKG: EKG: [] Radiology/Procedures: Radiology/Procedures: [] Course & Med Decision Making: Course & Med Decision Making I reviewed the patient's chart. I discussed the findings, differential diagnosis and plan of care with him, quite extensively. He does have evidence of bilateral lower extremity edema, which is chronic and unchanged for quite some time. He denies chest pain or dyspnea. His blood pressure is more well controlled here than it has been in quite some time, based on previous visits, and he admits that his blood pressure has been more well controlled at home when he checks it. He denies dyspnea, chest pain. No evidence of hypoxia. He does have evidence of mild foreskin edema, peripheral edema. He has known chronic kidney disease, known congestive heart failure. I suspect dietary compliance m ay have contributed to these issues presenting today. Nonetheless, there is no indication for further emergent imaging, invasive exams, or admission. He has seen his primary care physician and his pile driving nozzleman all within the last month or so. I strongly encouraged him to contact his PCP and pile driving nozzleman today to discuss this further. He his pile driving nozzleman purposely took him off of Lasix within the last few months. The patient does not know why this was done. I told him that he needs to discuss this with them. He repeatedly demands that I "drain" this area of swelling. I explained that that is not acceptable treatment. Compliance with diet, compliance with medications are going to prevent further progression of peripheral edema and worsening symptoms. There is no evidence of paraphimosis, the foreskin is easily retracted. There is no evidence of infection. The patient is frustrated that I am not able to immediately resolve his symptoms. I told him that he may return for any worsening changes, worsening symptoms, chest pain, dyspnea, abdominal pain, development of anasarca, if he is unable to urinate, if he is foreskin is not retractable. Return precautions are given. Donna Disclaimer: Donna Disclaimer: This electronic medical record was generated, in whole or in part, using a voice recognition dictation system. Departure Departure Impression: Primary Impression: Peripheral edema Disposition: HOME / SELF CARE / HOMELESS Condition: STABLE Referrals: UNKNOWN PCP NAME (PCP) Patient Instructions: Diet - 1.5 Gram Low Sodium, Edema, Heart Failure, Kidney Failure, Peripheral Edema Additional Instructions: Please eat a low-sodium diet. Take your medications as directed. I need you to contact your primary care doctor and your pile driving nozzleman today to discuss your body swelling further. You may need to be back on your water pill in order to help get rid of some of the extra fluid. Please return if you are unable to uri kim, if you develop any severe pain, redness, abdominal pain, vomiting, chest pain, shortness of breath or any other concerns. Please make sure to comply with your diet and medications. NAOMIE VILLELA DO Oct 02, 2021 04:57
[2021-10-02 05:30] VITALS: BP 171/80
== END 2021-10-02 05:33 | disposition home or self-care (01) ==
LOC: ER 03:30
DX: R60.0 Localized edema (principal); E10.9 Type 1 diabetes mellitus without complications; E78.00 Pure hypercholesterolemia, unspecified; I10 Essential (primary) hypertension; I25.2 Old myocardial infarction; Z87.891 Personal history of nicotine dependence; Z88.6 Allergy status to analgesic agent; Z88.8 Allergy status to other drugs, medicaments and biological substances
CPT/HCPCS: 99281